=== PATIENT | male | born 1990 | race Caucasian/White ===

== ENCOUNTER → 2019-08-18 12:15 | Outpatient (BNVA) | payer MEDICAID, SELFPAY | PROVIDERS: Family Provider Nurse Practitioner Family; PCP Nurse Practitioner Family; Visit Provider Nurse Practitioner Family | DX: F63.3 Trichotillomania (principal); N39.0 Urinary tract infection, site not specified; E78.2 Mixed hyperlipidemia; E55.9 Vitamin D deficiency, unspecified; N41.0 Acute prostatitis; R53.83 Other fatigue; Z79.899 Other long term (current) drug therapy; N41.9 Inflammatory disease of prostate, unspecified | CPT/HCPCS: 80053; 80061; 81001; 82306; 83036; 83721; 84443; 85025; G0103 ==

== ENCOUNTER → 2019-09-30 07:26 | Outpatient (BNVA) | payer MEDICAID, SELFPAY | PROVIDERS: Family Provider Nurse Practitioner Family; PCP Nurse Practitioner Family; Visit Provider Psychiatry & Neurology Psychiatry | DX: F41.1 Generalized anxiety disorder (principal); F40.228 Other natural environment type phobia; F17.210 Nicotine dependence, cigarettes, uncomplicated; F63.3 Trichotillomania | CPT/HCPCS: 99213 ==

== ENCOUNTER 2019-10-13 13:40 | Outpatient (CLI) | payer MEDICAID, SELFPAY ==
--- NOTE | 2019-10-13 13:45 | MR_ITS ---
WS: [id number] MRI PELVIS without CONTRAST. COMPARISON: None Multiplanar, multisequence imaging is performed without contrast. History: LEFT groin pain for one month. No injury. No soft tissue or bone abnormality noted in the pelvis. No adenopathy or inguinal hernia noted. In th e region of the LEFT groin no abnormality is identified. Visualized osseous structures are normal. Mu scles and bones are symmetric bilaterally. Normal appearance of the psoas muscles. The visualized col on is negative. MR/MR pelvis wo con* [id number] IMPRESSION: Negative MRI pelvis. No explanation for the LEFT groin pain.
== END 2019-10-13 13:41 | disposition home or self-care (01) ==
LOC: RADWPI 13:42
PROVIDERS: Family Provider Nurse Practitioner Family; PCP Nurse Practitioner Family; Visit Provider Nurse Practitioner Family
DX: R10.30 Lower abdominal pain, unspecified (principal)
CPT/HCPCS: 72195

== ENCOUNTER 2019-10-29 14:24 | Outpatient (CLI) | payer MEDICAID, SELFPAY ==
--- NOTE | 2019-10-29 15:00 | US_ITS ---
WS: [id number] SCROTAL ULTRASOUND EXAMINATION CLINICAL INFORMATION: left scrotum and groin pain COMPARISON: None. FINDINGS: TESTES Normal in size and echotexture, without focal lesion. Color Doppler: Normal color Doppler flow pattern. Right testes size: 2.9 cm x 4.0 cm x 2.0 cm. Left testes size: 3.4 cm x 2.3 cm x 2.4 cm. EPIDIDYMIDES Normal in size and echotexture, without focal lesion. Color Doppler: Normal color Doppler flow pattern. Right epididymis size: cm x 1.1 cm x cm. Left epididymitis size: cm x 0.9 cm x cm. HYDROCELE Bilateral small hydroceles. VARICOCELE Bilateral varicosities. OTHER FINDINGS Left spermatocele measuring 3 mm. US/US scrotum [id number] IMPRESSION: 1. Testicles are normal in size and echotexture. 2. Small bilateral hydroceles. 3. Small bilateral varicosities. 4. Small left spermatocele measuring 3 mm.
== END 2019-10-29 14:25 | disposition home or self-care (01) ==
LOC: RAD 14:27
PROVIDERS: PCP Nurse Practitioner Family; Visit Provider Surgery
DX: N50.82 Scrotal pain (principal); R10.30 Lower abdominal pain, unspecified; N43.3 Hydrocele, unspecified; I83.93 Asymptomatic varicose veins of bilateral lower extremities; N43.41 Spermatocele of epididymis, single
CPT/HCPCS: 76870

== ENCOUNTER → 2020-02-24 09:08 | Outpatient (BNVA) | payer MEDICAID, SELFPAY | PROVIDERS: PCP Nurse Practitioner Family; Visit Provider Psychiatry & Neurology Psychiatry | DX: F41.1 Generalized anxiety disorder (principal); F40.228 Other natural environment type phobia; F17.210 Nicotine dependence, cigarettes, uncomplicated | CPT/HCPCS: 99214 ==

== ENCOUNTER → 2020-03-22 12:46 | Outpatient (BNVA) | payer MEDICAID, SELFPAY | PROVIDERS: PCP Nurse Practitioner Family; Visit Provider Psychiatry & Neurology Psychiatry | DX: F41.1 Generalized anxiety disorder (principal); F40.228 Other natural environment type phobia; F17.210 Nicotine dependence, cigarettes, uncomplicated | CPT/HCPCS: 99213 ==

== ENCOUNTER → 2020-07-24 10:29 | Outpatient (BNVA) | payer MEDICAID, SELFPAY | PROVIDERS: PCP Nurse Practitioner Family; Visit Provider Psychiatry & Neurology Psychiatry | DX: F41.1 Generalized anxiety disorder (principal); F40.228 Other natural environment type phobia; F17.210 Nicotine dependence, cigarettes, uncomplicated | CPT/HCPCS: 99213 ==

== ENCOUNTER → 2020-10-18 12:32 | Outpatient (BNVA) | payer MEDICAID, SELFPAY | PROVIDERS: PCP Nurse Practitioner Family; Visit Provider Psychiatry & Neurology Psychiatry | DX: F41.1 Generalized anxiety disorder (principal); F40.228 Other natural environment type phobia; F17.210 Nicotine dependence, cigarettes, uncomplicated | CPT/HCPCS: 99214 ==

== ENCOUNTER → 2021-03-15 13:03 | Outpatient (BNVA) | payer MEDICAID, SELFPAY | PROVIDERS: PCP Nurse Practitioner Family; Visit Provider Psychiatry & Neurology Psychiatry | DX: F41.1 Generalized anxiety disorder (principal); F40.228 Other natural environment type phobia; F17.210 Nicotine dependence, cigarettes, uncomplicated | CPT/HCPCS: 99213 ==

== ENCOUNTER → 2021-05-31 12:13 | Outpatient (BNVA) | payer MEDICAID, SELFPAY | PROVIDERS: PCP Nurse Practitioner Family; Visit Provider Psychiatry & Neurology Psychiatry | DX: F41.1 Generalized anxiety disorder (principal); F40.228 Other natural environment type phobia; F17.210 Nicotine dependence, cigarettes, uncomplicated | CPT/HCPCS: 99213 ==

== ENCOUNTER → 2021-08-23 12:14 | Outpatient (BNVA) | payer MEDICAID, SELFPAY | PROVIDERS: PCP Nurse Practitioner Family; Visit Provider Psychiatry & Neurology Psychiatry | DX: F41.1 Generalized anxiety disorder (principal); F40.228 Other natural environment type phobia; F17.210 Nicotine dependence, cigarettes, uncomplicated | CPT/HCPCS: 99213 ==

== ENCOUNTER → 2023-09-18 15:34 | Outpatient (BNVA) | payer OTHER, SELFPAY | PROVIDERS: Absent Provider Nurse Practitioner Family; PCP Nurse Practitioner Family; Visit Provider Nurse Practitioner Family | DX: R11.2 Nausea with vomiting, unspecified (principal); R19.7 Diarrhea, unspecified; K52.9 Noninfective gastroenteritis and colitis, unspecified | CPT/HCPCS: 87400; 87426 ==

== ENCOUNTER 2024-05-20 07:39 | Outpatient (CLI) | payer MEDICAID, SELFPAY ==
--- NOTE | 2024-05-20 08:00 | US_ITS ---
WS: [id number] TESTICULAR ULTRASOUND HISTORY: N50.82 - Scrotal pain COMPARISON: 04/10/2021 TECHNIQUE: Real-time and color Doppler imaging or utilized to perform a testicular ultrasound. Right testicle: 3.7 cm x 2.5 cm x 2.1 cm. Normal size and echogenicity. No mass or torsion. Normal color Doppler is present throughout. Systolic and diastolic velocities are both present. No significant hydrocele. Right epididymis: Normal epididymis with no increased vascularity. Left testicle: 4.0 cm x 2.6 cm x 2.0 cm. Normal size and echogenicity. No mass or torsion. Increased Doppler throughout the LEFT testicle as compared to the RIGHT. No significant hydrocele. Left epididymis: Normal epididymis with no increased vascularity. US/US scrotum [id number] IMPRESSION: 1. No testicular mass or torsion. 2. Increased Doppler throughout the LEFT testicle. Consider mild acute LEFT or chitis.
== END 2024-05-20 07:40 | disposition home or self-care (01) ==
PROVIDERS: PCP Nurse Practitioner Family; Visit Provider Nurse Practitioner Family
DX: N50.82 Scrotal pain (principal); R93.89 Abnormal findings on diagnostic imaging of other specified body structures
CPT/HCPCS: 76870